=== PATIENT | female | born 1980 | race Two or more races ===

== ENCOUNTER → 2023-04-01 | Outpatient (CLI) | payer BC ==
[2023-04-01 12:18] LABS: Basophils # (auto) 0 10 ^3/uL (0-0.2); Eosinophils # (auto) 0.1 10 ^3/uL (0-0.8); Lymphocytes # (auto) 1.2 10 ^3/uL (0.4-5.4); Monocytes # (auto) 0.4 10 ^3/uL (0-1.3)
[2023-04-01 12:19] LABS: Basophils % (auto) 0.3 % (0.0-2.0); Hematocrit 30.5 % (36.0-46.0); Hemoglobin 9.8 g/dL (12.2-16.2); Mean Corpuscular Hemoglobin 24.3 pg (28.0-32.0); Mean Corpuscular Hgb Conc. 32.1 g/dL (32.0-36.0); Mean Corpuscular Volume 75.7 fL (80.0-100.0); Monocytes % (auto) 5.8 % (0.0-12.0); Neutrophils # (auto) 5.5 10 ^3/uL (1.6-8.6); Neutrophils % (auto) 75.9 % (37.0-80.0); Red Blood Cells 4.03 10^6/uL (4.0-5.20); Red Cell Distribution Width 15.7 % (11.8-14.3); White Blood Cell 7.3 10^3/uL (4.4-10.8)
[2023-04-01 13:09] LABS: Amphetamine Screen, Urine Neg (NEGATIVE); Barbiturate Scree,Urine Neg (NEGATIVE); Benzodiazephine Screen, Urine Neg (NEGATIVE); Cannabinoid Screen, Urine Neg (NEGATIVE); Cocaine Screen, Urine Neg (NEGATIVE); Opiate Scree,Urine Neg (NEGATIVE); Phencyclidine Screen, Urine Neg (NEGATIVE)
[2023-04-02 08:07] LABS: RPR Non Reactive (Non Reactive)
[2023-04-02 10:07] LABS: Treponema Pallidum Ab LC Non Reactive (Non Reactive)
[2023-04-02 22:06] LABS: Chlamydia Trachomatis, NAA Negative (Negative); Neisseria gonorrhoeae, NAA Negative (Negative)
== END | disposition home or self-care (01) ==
LOC: LAB 11:49
PROVIDERS: ATTEND Obstetrics & Gynecology
DX: Z34.80 Encounter for supervision of other normal pregnancy, unspecified trimester (principal); Z3A.00 Weeks of gestation of pregnancy not specified
CPT/HCPCS: 36415; 80307; 83036; 84112; 84702; 85025; 86592; 86703; 86762; 86850; 86900; 86901; 87086; 87340

== ENCOUNTER → 2023-06-19 | Outpatient (CLI) | payer BC ==
[2023-06-19 11:21] LABS: Basophils # (auto) 0.1 10 ^3/uL (0-0.2); Eosinophils # (auto) 0.2 10 ^3/uL (0-0.8); Eosinophils % (auto) 3.2 % (0.0-7.0); Hematocrit 28.8 % (36.0-46.0); Lymphocytes # (auto) 1.4 10 ^3/uL (0.4-5.4); Lymphocytes % (auto) 20.9 % (10.0-50.0); Mean Corpuscular Hemoglobin 22.6 pg (28.0-32.0); Mean Corpuscular Hgb Conc. 31.3 g/dL (32.0-36.0); Mean Corpuscular Volume 72.1 fL (80.0-100.0); Monocytes # (auto) 0.6 10 ^3/uL (0-1.3); Monocytes % (auto) 9.5 % (0.0-12.0); Neutrophils # (auto) 4.5 10 ^3/uL (1.6-8.6); Neutrophils % (auto) 65.4 % (37.0-80.0); Nucleated Red Blood Cells % 0.2 %; Red Cell Distribution Width 17.1 % (11.8-14.3); White Blood Cell 6.8 10^3/uL (4.4-10.8)
== END | disposition home or self-care (01) ==
LOC: LAB 10:10
PROVIDERS: ATTEND Obstetrics & Gynecology
DX: O99.810 Abnormal glucose complicating pregnancy (principal); Z3A.00 Weeks of gestation of pregnancy not specified
CPT/HCPCS: 36415; 82951; 85025

== ENCOUNTER 2023-06-23 10:40 | Observation (INO) | payer BC ==
[2023-06-23] MEDS ORDERED: PREN-96 PO (10:58)
== END 2023-06-23 12:15 | disposition home or self-care (01) ==
LOC: UNDOADMOB 10:40 → LDRP 10:40
PROVIDERS: ADMIT Obstetrics & Gynecology; ATTEND Obstetrics & Gynecology
DX: O40.3XX0 Polyhydramnios, third trimester, not applicable or unspecified (principal); O09.523 Supervision of elderly multigravida, third trimester; Z3A.32 32 weeks gestation of pregnancy
CPT/HCPCS: 59025; 76818; 81002; 94760; G0378

== ENCOUNTER 2023-07-03 12:01 | Observation (INO) | payer BC ==
[~2023-07-03 12:01] MED LIST: PREN-96 PO
== END 2023-07-03 13:32 | disposition home or self-care (01) ==
LOC: UNDOADMOB 12:01 → LDRP 12:01 → UNDODISOB 13:32
PROVIDERS: ADMIT Obstetrics & Gynecology; ATTEND Obstetrics & Gynecology
DX: O24.419 Gestational diabetes mellitus in pregnancy, unspecified control (principal); O40.3XX0 Polyhydramnios, third trimester, not applicable or unspecified; O09.523 Supervision of elderly multigravida, third trimester; Z3A.34 34 weeks gestation of pregnancy; Z87.891 Personal history of nicotine dependence
CPT/HCPCS: 59025; 76818; 81002; G0378

== ENCOUNTER 2023-07-15 14:57 | Observation (INO) | payer BC | END 2023-07-15 16:48 | disposition home or self-care (01) | LOC: LDRP 14:57 → UNDOADMOB 14:57 → LDRP 15:10 | PROVIDERS: ADMIT Obstetrics & Gynecology; ATTEND Obstetrics & Gynecology | DX: O40.3XX0 Polyhydramnios, third trimester, not applicable or unspecified (principal); Z3A.35 35 weeks gestation of pregnancy | CPT/HCPCS: 59025; 76818; 81002; 94760; G0378 ==

== ENCOUNTER 2023-07-17 10:05 | Observation (INO) | payer BC | END 2023-07-17 13:17 | disposition home or self-care (01) | LOC: LDRP 10:05 → UNDOADMOB 10:05 → LDRP 10:26 → UNDODISOB 13:17 | PROVIDERS: ADMIT Obstetrics & Gynecology; ATTEND Obstetrics & Gynecology | DX: O40.3XX0 Polyhydramnios, third trimester, not applicable or unspecified (principal); O43.893 Other placental disorders, third trimester; O09.523 Supervision of elderly multigravida, third trimester; Z3A.36 36 weeks gestation of pregnancy; Z87.891 Personal history of nicotine dependence | CPT/HCPCS: 59025; 76818; 81002; G0378 ==

== ENCOUNTER 2023-08-14 10:48 | Inpatient (IN) | payer BC ==
[~2023-08-14] VITALS: Ht 154.9 cm; Wt 73.9 kg
[2023-08-14] MEDS ORDERED: MAGNESIUM SULFATE 40MG/ML 1,000 ML IV SCH (11:45)
[2023-08-14] MEDS ORDERED: miSOPROStol 100 mcg TAB PR PRN (11:45)
[2023-08-14] MEDS ORDERED: PROMETHAZINE HCL 25 MG/ML 1ML IV PRN (11:45)
[2023-08-14] MEDS ORDERED: hydrALAZINE HCL 20 MG/ML VL IV PRN ×2 (11:45)
[2023-08-14] MEDS ORDERED: LABETALOL HCL 5 MG/ML 4ML SYRINGE IV PRN (11:45)
[2023-08-14] MEDS ORDERED: CARBOPROST TROMETHAMINE 250 MCG/1ML VIAL IM PRN (11:45)
[2023-08-14] MEDS ORDERED: METHYLERGONOVINE MALEATE 0.2 MG/ML AMP IM PRN (11:45)
[2023-08-14] MEDS ORDERED: BUTORPHANOL TARTRATE 2 MG/1 ML VIAL IV PRN ×2 (11:45)
[2023-08-14] MEDS ORDERED: TRANEXAMIC ACID 1,000 MG in SODIUM CHL 0.9% 100 ML IV ONE (11:45)
[2023-08-14] MEDS ORDERED: miSOPROStol 100 mcg TAB SL PRN (11:45)
[2023-08-14] MEDS ORDERED: LORazepam 2MG/ML-1ML VIAL IV ONE (11:45)
[2023-08-14] MEDS ORDERED: MAGNESIUM SULFATE 100 ML IV ONE (11:45)
[2023-08-14] MEDS ORDERED: LIDOCAINE 2%HCL (LOCAL ANESTH.) INJ 20ML MDV IJ PRN (11:45)
[2023-08-14 11:56] LABS: Basophils # (auto) 0 10 ^3/uL (0-0.2); Eosinophils # (auto) 0.1 10 ^3/uL (0-0.8); Hemoglobin 9.3 g/dL (12.2-16.2); Lymphocytes # (auto) 0.9 10 ^3/uL (0.4-5.4); Mean Corpuscular Hemoglobin 21.5 pg (28.0-32.0); Mean Corpuscular Hgb Conc. 30.6 g/dL (32.0-36.0); Monocytes # (auto) 0.4 10 ^3/uL (0-1.3); Neutrophils % (auto) 81.1 % (37.0-80.0); Nucleated Red Blood Cells % 0.1 %; Red Blood Cells 4.34 10^6/uL (4.0-5.20)
[2023-08-14 11:58] LABS: Basophils % (auto) 0.2 % (0.0-2.0); Eosinophils % (auto) 1.3 % (0.0-7.0); Hematocrit 30.4 % (36.0-46.0); Lymphocytes % (auto) 11.7 % (10.0-50.0); Mean Corpuscular Volume 70.1 fL (80.0-100.0); Monocytes % (auto) 5.7 % (0.0-12.0); Red Cell Distribution Width 18.4 % (11.8-14.3); White Blood Cell 7.4 10^3/uL (4.4-10.8)
[2023-08-14 12:11] LABS: Urine Bacteria FEW /hpf (None Seen); Urine Blood Negative /uL (Negative); Urine Clarity Clear (Clear); Urine Protein, UAD Negative (Negative); Urine Specific Gravity 1.007 (1.001-1.035); Urine Urobilinogen Normal (Negative); Urine WBC <1 /hpf (0 - 5); Urine pH 6.5 (5.0-8.0)
[2023-08-14 12:14] LABS: Urine Color STRAW (Yellow)
[2023-08-14 12:17] LABS: Albumin 3.9 g/dL (3.2-4.8); Alkaline Phosphatase 146 U/L (46-116); Anion Gap 9 (5-15); Aspartate Aminotransferase 17 U/L (13-40); Bilirubin, Total 0.8 mg/dL (0.2-1.0); Blood Urea Nitrogen 8 mg/dL (9-23); Calcium 8.5 mg/dL (8.7-10.4); Carbon Dioxide 24 mmol/L (20-30); Chloride 105 mmol/L (98-107); Glucose 76 mg/dL (74-106); Potassium 3.5 mmol/L (3.5-5.1); Sodium 138 mmol/L (136-145); Total Protein 6.8 g/dL (5.7-8.2)
[2023-08-14 12:19] LABS: Protein, Urine 10.2 mg/dL (0.0-11.9)
[2023-08-14 12:20] LABS: Alanine Aminotransferase < 9 U/L (7-40)
[2023-08-14 12:21] LABS: INR 0.94 (0.9-1.15); Prothrombin Time 9.9 sec (9.3-11.8)
[2023-08-14 12:22] LABS: Amphetamine Screen, Urine Neg (NEGATIVE); Barbiturate Scree,Urine Neg (NEGATIVE); Benzodiazephine Screen, Urine Neg (NEGATIVE); Cannabinoid Screen, Urine Neg (NEGATIVE); Cocaine Screen, Urine Neg (NEGATIVE); Creatinine, Urine 41.95 mg/dL (30.0-125.0); Opiate Scree,Urine Neg (NEGATIVE); Phencyclidine Screen, Urine Neg (NEGATIVE); Urine Protein/Creatinine Ratio 0.24
[2023-08-14] MEDS: miSOPROStol 50 MCG per PRE-CUT 1/2 TAB PO PRN (14:02)
[2023-08-14] MEDS ORDERED: ePHEDrine SULFATE 50 MG/ML AMP IV ONE (19:00)
[2023-08-14] MEDS: NALOXONE HCL 0.4 MG/ML VIAL IV ONE (19:00)
[2023-08-14] MEDS: LACTATED RINGER'S 1,000 ML IV SCH (19:09)
[2023-08-14] MEDS ORDERED: ROPIVACAINE HCL 200 ML ONE (19:14)
[2023-08-14] MEDS ORDERED: DIPHENOXYLATE W/ATROPINE 2.5 MG TAB PO SCH (22:00)
[2023-08-14] MEDS: LACT. RINGERS/OXYTOCIN 20UNITS 1,000 ML IV SCH (22:33)
[2023-08-14] MEDS ORDERED: LACT. RINGERS/OXYTOCIN 20UNITS 500 ML IV ONE (23:00)
[2023-08-14] MEDS: LACT. RINGERS/OXYTOCIN 20UNITS 500 ML IV ONE (23:30)
[2023-08-15] VITALS (10 sets, daily range): BP systolic 122–147; BP diastolic 63–84; PULSE 85–101; RESP 11–18; TEMP 97.9–99.5; O2SAT 93–99
[2023-08-15] MEDS: DERMOPLAST 60ML BOTTLE TOP PRN (04:19)
[2023-08-15] MEDS: PHISODERM TOP SOLN 240ML BTL TOP PRN (04:19)
[2023-08-15] MEDS: WITCH HAZEL-GLYCERIN PAD TOP PRN (04:19)
[2023-08-15] MEDS: SODIUM CHLORIDE 0.9% 300 ML IUPC ONE (05:12)
[2023-08-15] MEDS: SODIUM CHLORIDE 0.9% 1,000 ML IUPC SCH (05:12)
[2023-08-15] MEDS ORDERED: ROPIVACAINE HCL 200 ML ONE (05:52)
[2023-08-15] MEDS ORDERED: TERBUTALINE SULFATE 1 MG/ML 1ML VIAL SC ONE (06:27)
[2023-08-15] MEDS: TERBUTALINE SULFATE 1 MG/ML 1ML VIAL SC PRN (06:29)
[2023-08-15] MEDS ORDERED: ceFAZolin 2 GM/D5W50ml 50 ML IV ONE (06:34)
[2023-08-15] MEDS ORDERED: LIDOCAINE 2% (LOCAL ANESTH.) PF 5ml SDV ONE (06:51)
[2023-08-15] MEDS ORDERED: MORPHINE SULF PF 5 MG/10 ML VIAL ONE (06:52)
[2023-08-15] MEDS: ceFAZolin 2 GM/D5W50ml 50 ML IV ONE (07:20)
[2023-08-15] MEDS ORDERED: fentaNYL CITRATE 100 MCG/2 ML VL ONE ×2 (07:40→08:21)
[2023-08-15] MEDS ORDERED: MIDAZOLAM HCL 2MG/2ML 2ml VIAL (1mg/ml) ONE (07:42)
[2023-08-15 08:06] LABS: RPR Non Reactive (Non Reactive)
[2023-08-15] MEDS ORDERED: ONDANSETRON HCL 4 MG/2 ML VIAL IV PRN (08:30)
[2023-08-15] MEDS ORDERED: ceFAZolin 1GM/50ML 50 ML IV SCH (08:30)
[2023-08-15] MEDS ORDERED: HYDROmorphone HCL 2 MG/ML VL/or syr ONE (08:34)
[2023-08-15] MEDS: HYDROmorphone HCL 2 MG/ML VL/or syr IV PRN ×2 (08:37→14:09)
[2023-08-15] MEDS ORDERED: NALOXONE HCL 0.4 MG/ML VIAL IV PRN (08:45)
[2023-08-15] MEDS: KETOROLAC TROMETH 30 MG/ML 1ML VIAL IV PRN (08:57)
[2023-08-15] MEDS: LACT. RINGERS/OXYTOCIN 20UNITS 1,000 ML IV ONE (09:53)
[2023-08-15] MEDS: MORPHINE SULFATE 4 MG/ML SYR/VIAL IV PRN (10:02)
[2023-08-15 10:25] LABS: Hemoglobin 7.7 g/dL (12.2-16.2); White Blood Cell 13.9 10^3/uL (4.4-10.8)
[2023-08-15 10:27] LABS: Hematocrit 25.5 % (36.0-46.0); Mean Corpuscular Hemoglobin 21.2 pg (28.0-32.0); Mean Corpuscular Hgb Conc. 30.2 g/dL (32.0-36.0); Red Blood Cells 3.65 10^6/uL (4.0-5.20); Red Cell Distribution Width 18.4 % (11.8-14.3)
[2023-08-15 10:44] LABS: Albumin 3.1 g/dL (3.2-4.8); Alkaline Phosphatase 113 U/L (46-116); Anion Gap 11 (5-15); Aspartate Aminotransferase 24 U/L (13-40); Calcium 7.7 mg/dL (8.5-10.1); Carbon Dioxide 19 mmol/L (20-30); Chloride 106 mmol/L (98-107); Glucose 107 mg/dL (74-106); Potassium 3.5 mmol/L (3.5-5.1); Sodium 136 mmol/L (136-145)
[2023-08-15 10:45] LABS: Bilirubin, Total 1.1 mg/dL (0.2-1.0); Total Protein 5.3 g/dL (5.7-8.2)
[2023-08-15 10:47] LABS: Basophils % (manual) 0 (0.0-2.0); Blast Cells 0; Eosinophils % (manual) 0 (0-7); Promyelocytes % 0; Reactive Lymphocytes 0
[2023-08-15 10:50] LABS: Alanine Aminotransferase < 9 U/L (7-40); BUN/Creatinine Ratio 9.6 (10.0-20.0); Blood Urea Nitrogen < 5 mg/dL (9-23)
[2023-08-15] MEDS: ACETAMINOPHEN IV 1000 MG/100ML (10MG/ML) IV PRN (10:58)
[2023-08-15 11:07] LABS: INR 0.98 (0.9-1.15); Prothrombin Time 10.3 sec (9.3-11.8)
[2023-08-15 11:15] LABS: Band Neutrophils % (manual) 12; Lymphocytes % (manual) 4 (10.0-50.0); Metamyelocytes % 2; Monocytes % (manual) 1 (0-12); Myelocytes % 1
[2023-08-15 11:16] LABS: Giant Platelets Few; Platelet Estimate Adequate
[2023-08-15 12:40] LABS: Hemoglobin 7.8 g/dL (12.2-16.2)
[2023-08-15 12:43] LABS: Hematocrit 26.5 % (36.0-46.0); Mean Corpuscular Hemoglobin 21.6 pg (28.0-32.0); Mean Corpuscular Hgb Conc. 29.4 g/dL (32.0-36.0); Mean Corpuscular Volume 73.7 fL (80.0-100.0); Red Blood Cells 3.59 10^6/uL (4.0-5.20); Red Cell Distribution Width 18.3 % (11.8-14.3); White Blood Cell 12.9 10^3/uL (4.4-10.8)
[2023-08-15 12:52] LABS: Blast Cells 0; Eosinophils % (manual) 0 (0-7); Myelocytes % 0; Reactive Lymphocytes 0
[2023-08-15 14:15] LABS: Band Neutrophils % (manual) 9; Basophils % (manual) 1 (0.0-2.0); Lymphocytes % (manual) 1 (10.0-50.0); Metamyelocytes % 3; Monocytes % (manual) 4 (0-12); Promyelocytes % 1
[2023-08-15 14:17] LABS: Platelet Estimate Decreased
[2023-08-15] MEDS: ceFAZolin 1GM/50ML 50 ML IV SCH (17:07)
[2023-08-15 18:08] LABS: Basophils # (auto) 0 10 ^3/uL (0-0.2); Basophils % (auto) 0.3 % (0.0-2.0); Eosinophils # (auto) 0 10 ^3/uL (0-0.8); Eosinophils % (auto) 0.1 % (0.0-7.0); Hematocrit 23.7 % (36.0-46.0); Hemoglobin 7.2 g/dL (12.2-16.2); Lymphocytes # (auto) 0.8 10 ^3/uL (0.4-5.4); Lymphocytes % (auto) 7.2 % (10.0-50.0); Mean Corpuscular Hemoglobin 21.2 pg (28.0-32.0); Mean Corpuscular Hgb Conc. 30.2 g/dL (32.0-36.0); Monocytes # (auto) 0.7 10 ^3/uL (0-1.3); Monocytes % (auto) 6.1 % (0.0-12.0); Neutrophils # (auto) 9.8 10 ^3/uL (1.6-8.6); Neutrophils % (auto) 86.3 % (37.0-80.0); Red Blood Cells 3.38 10^6/uL (4.0-5.20); Red Cell Distribution Width 17.9 % (11.8-14.3); White Blood Cell 11.3 10^3/uL (4.4-10.8)
[2023-08-16] VITALS (9 sets, daily range): BP systolic 112–135; BP diastolic 59–81; PULSE 72–90; RESP 16–20; TEMP 97.9–99.5; O2SAT 95–96
[2023-08-16 00:34] LABS: Basophils # (auto) 0 10 ^3/uL (0-0.2); Basophils % (auto) 0.2 % (0.0-2.0); Eosinophils # (auto) 0.1 10 ^3/uL (0-0.8); Monocytes # (auto) 0.7 10 ^3/uL (0-1.3); Red Cell Distribution Width 18.4 % (11.8-14.3)
[2023-08-16 00:36] LABS: Eosinophils % (auto) 0.6 % (0.0-7.0); Hematocrit 22.5 % (36.0-46.0); Lymphocytes % (auto) 9.6 % (10.0-50.0); Mean Corpuscular Hemoglobin 21.9 pg (28.0-32.0); Mean Corpuscular Volume 70.6 fL (80.0-100.0); Monocytes % (auto) 6.6 % (0.0-12.0); Neutrophils # (auto) 8.4 10 ^3/uL (1.6-8.6); Nucleated Red Blood Cells % 0.1 %; Red Blood Cells 3.19 10^6/uL (4.0-5.20); White Blood Cell 10.1 10^3/uL (4.4-10.8)
[2023-08-16 07:04] LABS: Basophils # (auto) 0 10 ^3/uL (0-0.2); Eosinophils # (auto) 0.1 10 ^3/uL (0-0.8); Neutrophils % (auto) 80.8 % (37.0-80.0); White Blood Cell 9.9 10^3/uL (4.4-10.8)
[2023-08-16 07:06] LABS: Basophils % (auto) 0.2 % (0.0-2.0); Hematocrit 27.2 % (36.0-46.0); Hemoglobin 8.6 g/dL (12.2-16.2); Lymphocytes # (auto) 1.1 10 ^3/uL (0.4-5.4); Lymphocytes % (auto) 10.9 % (10.0-50.0); Mean Corpuscular Hemoglobin 23.6 pg (28.0-32.0); Mean Corpuscular Hgb Conc. 31.5 g/dL (32.0-36.0); Mean Corpuscular Volume 74.8 fL (80.0-100.0); Monocytes # (auto) 0.7 10 ^3/uL (0-1.3); Monocytes % (auto) 7.1 % (0.0-12.0); Red Blood Cells 3.64 10^6/uL (4.0-5.20); Red Cell Distribution Width 19.8 % (11.8-14.3)
[2023-08-16] MEDS: ONDANSETRON HCL 4 MG/2 ML VIAL IV PRN (07:10)
[2023-08-16] MEDS ORDERED: BISACODYL 10 MG RECT SUPP PR PRN (12:00)
[2023-08-16] MEDS ORDERED: IBUPROFEN 800 MG TAB PO PRN (12:00)
[2023-08-16] MEDS ORDERED: SIMETHICONE 80 MG CHEWABLE TABLET PO SCH (12:00)
[2023-08-16] MEDS: HYDROcodone-ACET 5/325MG TAB PO PRN (14:46)
[2023-08-16] MEDS: FERROUS SULFATE 325mg EC TAB PO SCH (22:08)
[2023-08-16] MEDS: DOCUSATE SOD 100 MG CAP PO SCH (22:08)
[2023-08-17 03:00] VITALS: BP 110/70; PULSE 77; RESP 17; TEMP 99; O2SAT 97
[2023-08-17 07:00] VITALS: BP 117/63; PULSE 78; RESP 16; TEMP 98.1; O2SAT 95
[2023-08-17] MEDS: HYDROcodone-ACET 5/325MG TAB PO PRN (07:20)
[2023-08-17] MEDS ORDERED: HYDR-4902 PO (07:27)
[2023-08-17] MEDS ORDERED: IBUP-1455 PO (07:27)
[2023-08-17] MEDS ORDERED: DOCU-265 PO (07:27)
[2023-08-17] MEDS ORDERED: FER325T PO (07:27)
[2023-08-17] MEDS ORDERED: hydrALAZINE HCL 20 MG/ML VL IV ONE (09:15)
[2023-08-17] MEDS ORDERED: DOCUSATE CALCIUM 240 MG CAP PO SCH (10:00)
[2023-08-17 11:00] VITALS: BP 114/69; PULSE 75; RESP 16; TEMP 98.2; O2SAT 98
[2023-08-17 19:06] LABS: Treponema pallidum Ab (FTA-Ab) Non Reactive (Non Reactive)
== END 2023-08-17 13:44 | disposition home or self-care (01) | DRG 788 ==
LOC: LDRP 10:48 → UNDOADMOB 10:48 → LDRP 10:57 → OBSVTOIN 11:51 → LDRP 13:32
PROVIDERS: ADMIT Obstetrics & Gynecology; ATTEND Obstetrics & Gynecology
PROC: 10D00Z1 Extraction of Products of Conception, Low, Open Approach (ICD-10-PCS; principal; 2023-08-15 07:23)
PROC: 30233N1 Transfusion of Nonautologous Red Blood Cells into Peripheral Vein, Percutaneous Approach (ICD-10-PCS; 2023-08-16)
DX: O62.2 Other uterine inertia (principal); O13.4 Gestational [pregnancy-induced] hypertension without significant proteinuria, complicating childbirth; O69.81X0 Labor and delivery complicated by cord around neck, without compression, not applicable or unspecified; O99.02 Anemia complicating childbirth; O40.3XX0 Polyhydramnios, third trimester, not applicable or unspecified; O36.8130 Decreased fetal movements, third trimester, not applicable or unspecified; O76 Abnormality in fetal heart rate and rhythm complicating labor and delivery; D64.9 Anemia, unspecified; Z3A.40 40 weeks gestation of pregnancy; Z37.0 Single live birth
CPT/HCPCS: 36415; 36430; 59025; 62282; 76818; 80053; 80307; 81001; 81002; 82570; 83735; 84156; 84550; 85007; 85025; 85027; 85610; 85730; 86592; 86850; 86900; 86901; 86920; 94760; 96360; 96361; 96365; 96366; 96374; 96375; G0378; J0131; J1885; J2001; J2250; J2405; J2590